=== PATIENT | male | born 1955 | race Two or more races ===

== ENCOUNTER 2021-11-29 19:23 | Emergency (ER) | payer MEDICARE, OTHER ==
[~2021-11-29] VITALS: Ht 167.6 cm; Wt 74.9 kg
[2021-11-29 21:31] VITALS: BP 126/83
== END 2021-11-29 22:19 | disposition home or self-care (01) ==
LOC: ER 19:23
DX: R51.9 Headache, unspecified (principal); I10 Essential (primary) hypertension; E11.9 Type 2 diabetes mellitus without complications; Z20.822 Contact with and (suspected) exposure to COVID-19
CPT/HCPCS: 36415; 70450; 87804